=== PATIENT | female | born 1950 | race Caucasian/White ===

== ENCOUNTER → 2017-02-27 | Day surgery (SDC) | payer OTHER ==
[~2017-02-27] VITALS: Ht 154.9 cm; Wt 78.5 kg
[~2017-02-27] MED LIST: 0.9% Sodium Chloride 1,000 ML IV SCH; BLUE5000 MC; CHOL200047 PO; CYAN50003 PO; GINK120C PO; HYDR25TA4 PO; LORA10CA9 PO; Lactated Ringer's 1,000 ML IV SCH; MetoCLOpramide 5 mg/mL 2 mL Inj IVPUSH PRN; OMEG500C BUCCAL; Ondansetron 2 mg/mL 2 mL Inj IVPUSH PRN; Sodium Biphos-Phos 133 mL Enema RECTAL PRN; Sodium Chloride LOK Flush 10 mL Syringe IV PRN
[2017-02-27 13:01] VITALS: BP 140/74; PULSE 69; RESP 16; O2SAT 96
--- NOTE | 2017-02-27 13:12 | PCM.HPANE ---
Patient Data Surgeon Admitting Provider: Attending Provider:Paul Pierre MD Primary Care Physician:Oriana Other Provider:Leann Chamberlain Anesthesia Reason for Visit Personal History Of Colon Polyps Ht/WT & BMI Height (Feet): 5 Height (Inches): 1 Weight (Kilograms): 78.47 Body Mass Index Allergies Coded Allergies: No Known Drug Allergies (Verified Allergy, Unknown, 02/25/17) Past Anesthesia History Anesthesia History: Positive for:: Anesthesia Reactions (NOT SEDATED ENOUGH FOR 1 OF HER COLONOSCOPIES), Denies:: Abnormal Airway, Difficult Intubation, Fam Anesthesia Reaction, Fam Malignant Hypertherm, Malignant Hyperthermia Diabetes History Hx Diabetes?: No MRSA MRSA: No Medications Home Meds Incl Beta Logan: No Reported Medications Cholecalciferol (Vitamin D3) (Vitamin D3)2,000 Unit Capsule2,000 Unit PO DAILY 02/25/17 Cyanocobalamin (Vitamin B-12) (Vitamin B-12)5,000 Mcg Tab.rapdis5,000 Mcg PO DAILY 02/25/17 Blue-Green Algae (Spirulina)5,000 Gm Powder5,000 Gm MC 02/25/17 Loratadine 10 Mg [id number] Mg PO DAILY 02/25/17 Hydrochlorothiazide 25 Mg [id number] Mg PO DAILY 30 Days Ref 0 02/25/17 Ginkgo Biloba Extract (Ginkgo Biloba)120 Mg [id number] Mg PO DAILY 02/25/17 [place]-3 Fatty Acids (Fish Oil)500 Mg Capsule.dr500 Mg BUCCAL DAILY 02/25/17 History History of ENT Problems?: No HEENT History: Denies:: Abnormal Airway Difficult Intubation Dysphagia Hearing Problem Denture Type: None Teeth Condition: Within Normal Limits Hx of Heart Problems?: Yes Cardiovascular History: Positive for:: Hypertension Denies:: AICD Atrial Fibrillation Chest Pain Pacemaker Valvular Heart Disease Hx of Respiratory Problem?: No Respiratory History: Denies:: Asthma COPD Cough Hemoptysis Pneumonia Tuberculosis Hx Neurologic Problems?: No Neurological History: Denies:: CVA Hx of GI Problems?: Yes Hx of Problems?: No Female Hx: Denies:: Currently Hx Musculoskeletal Problems?: No Musculoskeletal History: Denies:: Fibromyalgia Joint Replacement Hx of Psycho/Social Problems?: Yes Psycho Social History: Positive for:: Anxiety (EVERY NOW AND THEN) Denies:: Hx Depression Hx Surgeries?: Yes (RADICAL HYSTERECTOMY, LITHOTRIPSY, APPY) Hx Any Other Health Problems?: Yes Hx Diabetes: No Hx Alcohol Use: No Stop/Bang Treated for Sleep Apnea?: No Do You Have a CPAP Machine?: No S-Snoring: Do You Snore Loudly: Yes T-Tired: feel tired, fatigued: No O-Obsered: Observed not breath: No P-Blood Pressure: treated: Yes B- Body Mass Index > 35 kg/m2: No A- Age over 50: Yes N- Neck Large Circumference: No G- Gender Male: No LIANNA Total Score: 3 LIANNA Risk Assessment: Low Risk, <3 Yes Risk Assessment Category Category 1A: Patient has history of documented sleep apnea, and HAS NOT received any narcotic, sedative or anesthesia administration during this stay. Category 1B: Patient has history of documented sleep apnea, and HAS received any narcotic , sedative or anesthesia administration during this stay Category 2: Patient has SUSPECTED Obstructive Sleep Apnea, and HAS received any narcotic , sedative or anesthesia administration during this stay. Category 3: Patient has SUSPECTED Obstructive Sleep Apnea and HAS NOT received narcotic, sedative or anesthesia administration during this stay. Category 4: Outpatient in Procedural Areas with known sleep apnea or who screen positive for High Risk via the STOP/BANG questionnaire. Exam Exam Vital Signs Vital Signs Date Time Temp Pulse Resp B/P Pulse Ox O2 Delivery O2 Flow Rate FiO2 02/27/17 13:01 69 16 140/74 96 Room Air General Appearance: Oriented X3 HEENT/AIRWAY: MP 2 Lungs: Normal Air Movement Heart: Regular Rate/Rhythm Plan Impression Patient chart reviewed, patient interviewed and anesthestic plan with risks, benefits, and alternatives discussed, and informed consent obtained. ASA Physical Status: ASA2 Mod Systemic Disease Anesthetic Plan: MAC Bene/Risks/Altern/Consents: Yes HP Complete Prior to Induction: Yes Keegan Soares MD Feb 27, 2017 13:12
[2017-02-27] MEDS: Lactated Ringer's 1,000 ML IV SCH ×3 (13:25→14:18)
[2017-02-27 14:26] VITALS: BP 96/55; PULSE 88; RESP 11; O2SAT 94
--- NOTE | 2017-02-27 14:32 | PCM.ANEP1 ---
Post Anesthesia PACU Phase 1 Assessment Vital Signs Vital Signs Date Time Temp Pulse Resp B/P Pulse Ox O2 Delivery O2 Flow Rate FiO2 02/27/17 14:26 88 11 96/55 94 Room Air 02/27/17 13:01 69 16 140/74 96 Room Air Anesthetic Administered: MAC Level of Alertness: Sleepy, easy to arouse Pain: No Nausea or Vomiting: No CV Function & Hydration Stable: Yes Airway Device: Lungs: Normal Air Movement PACU Phase 2 Assessment Patient Instructions Provided: N/A Keegan Soares MD Feb 27, 2017 14:32
[2017-02-27 14:39] VITALS: BP 96/54; PULSE 65; RESP 12; O2SAT 95
[2017-02-27 14:45] VITALS: BP 110/64; PULSE 80; RESP 16; O2SAT 98
[2017-02-27 14:47] VITALS: BP 124/63; PULSE 82; RESP 14; O2SAT 94
--- NOTE | 2017-02-27 15:00 | ENDO ---
[address] [address] ENDOSCOPY PROCEDURE PATIENT: BRAD COOPER : 1950 MR#: [id number] ADMIT: 02/27/2017 JOB ID: [id number] PREPROCEDURE DIAGNOSIS: Personal history of colon polyps and incomplete colonoscopy. POSTPROCEDURE DIAGNOSIS: Personal history of colon polyps and incomplete colonoscopy. Ascending colon polyp, sigmoid colon polyp. PROCEDURE: Colonoscopy with biopsies. ENDOSCOPIST: Paul iPerre MD, Martín Carcamo MD, PGY4 ANESTHESIA: See the anesthesia record. INDICATION: The patient is a 66-year-old woman who first underwent colonoscopy in 1988 when she was diagnosed with stage IB cervical cancer. She had a followup colonoscopy in 1994 and then again in 2011. She had polyps removed both in 1988 and 1994. In 2011, she had incomplete colonoscopy because of tight angulation and difficulty with sedation. After discussion of the risks and benefits, she agreed to proceed with colonoscopy with anesthesia. FINDINGS: There was a small 2 mm polyp in the ascending colon, removed with cold forceps, and a 2 mm polyp in the sigmoid colon, removed with cold forceps. There was a fairly tightly angulated area in the sigmoid colon, but it ultimately was able to be navigated. Withdrawal time was 29 minutes. Terminal ileoscopy was performed. DESCRIPTION OF PROCEDURE: A procedural time-out was performed. She was connected to hemodynamic monitoring, pulse oximetry, and capnography. After digital rectal exam, the PCF-[id number] colonoscope was inserted and advanced under visualization until the appendiceal orifice and ileocecal valve were visualized and photo documented. The terminal ileum was intubated and it was normal. The scope was then withdrawn and ultimately retroflexed in the rectum. There were 2 mm polyps both in the ascending colon and sigmoid colon which were removed with cold forceps and sent for permanent pathology. No other mucosal abnormalities were seen. The scope was withdrawn and the procedure terminated. She tolerated the entire procedure well. RECOMMENDATIONS: We will mail a letter with biopsy results and, depending on biopsy results, most likely recommend repeat colonoscopy in five years. CC: Allison Campbell, [place], [place] ARIA
--- NOTE | 2017-03-04 12:42 | PATH ---
SURGICAL PATHOLOGY Attending Physician:Rosa Pritchett CASE STATUS: Signed Out PATIENT NAME: BRAD COOPER PID: [id number] : 1950 DATE COLLECTED:02/27/2017 00:00 SPECIMEN: 1: Colon, Polyp 2: Colon, Polyp CLINICAL HISTORY: 1). ASCENDING COLON POLYP 2). SIGMOID COLON POLYP FINAL DIAGNOSIS: 1. Ascending Colon Polyp, Biopsy: Tubular adenoma. 2. Sigmoid Colon Biopsy, Biopsy: Hyperplastic polyp. ICD10: D12.2 GROSS DESCRIPTION: The specimen is received in two formalin filled containers labeled with the patient's name. 1). The specimen is labeled "ascending colon polyp" and consists of 2 portions of tissue which aggregate to 0.2 x 0.2 x 0.1 CM. The specimen is entirely submitted in cassettes 1A. 2). The specimen is labeled "sigmoid colon polyp" and consists of a 0.2 x 0.2 x 0.2 CM portion of tissue which is entirely submitted in cassette 2A. 02/28/2017DC ICD-9 CODES: CPT CODES: 1: 32349 2: 66096 Electronically Signed Out Vance Bronson MD, Ph.D. [facility] Pathology [facility], [place] [address] Technical component performed at [facility], [facility] [address], [place], [address]
== END | disposition home or self-care (01) ==
LOC: END 02:28
PROVIDERS: ATTEND Student in an Organized Health Care Education/Training Program
DX: Z12.11 Encounter for screening for malignant neoplasm of colon (principal); D12.2 Benign neoplasm of ascending colon; K63.5 Polyp of colon; K63.89 Other specified diseases of intestine; I10 Essential (primary) hypertension; F41.9 Anxiety disorder, unspecified; Z86.010 Personal history of colon polyps
CPT/HCPCS: 45380; 88305; J7120